=== PATIENT | male | born 1955 | race Caucasian/White ===

== ENCOUNTER 2021-01-30 07:13 | Outpatient (CLI) | payer MEDICARE, SELFPAY ==
--- NOTE | 2021-01-30 07:15 | USCV_ITS ---
Jair Ovalle Age: 65 Gender: M : 1955 Exam Date: 01/30/2021 07:38 Ordering Phys: Anthony Belcher MD Technologist: Exam Location: [facility] [place] Indication: RT LEG EDEMA PROCEDURES: Venous duplex imaging was performed in only the right lower extremity. The following venous structures were evaluated: common femoral vein, profunda vein, proximal portion of the greater saphenous vein, superficial femoral vein, and the popliteal vein. In addition, the posterior tibial and peroneal trunk were evaluated. FINDINGS: Normal 2-D Doppler and augmentation and compressibility throughout the lower extremity venous structures. Additional imaging through the proximal calf veins also reveals no thrombus. Limited evaluation of the greater saphenous vein is patent with no thrombus. CONCLUSIONS No DVT right lower extremity. Dr. Gauri Patricia DO (Electronically Signed) Final Date: 30 January 2021 08:41 S
== END 2021-01-30 07:14 | disposition home or self-care (01) ==
PROVIDERS: PCP Family Medicine; Visit Provider Family Medicine
DX: M25.471 Effusion, right ankle (principal); R60.0 Localized edema
CPT/HCPCS: 93971

== ENCOUNTER → 2021-02-01 09:03 | Outpatient (BNVA) | payer MEDICARE, SELFPAY | PROVIDERS: PCP Family Medicine; Visit Provider Nurse Practitioner Family | DX: M25.471 Effusion, right ankle (principal); Z79.899 Other long term (current) drug therapy; E55.9 Vitamin D deficiency, unspecified; Z13.6 Encounter for screening for cardiovascular disorders | CPT/HCPCS: 80053; 80061; 81003; 82306; 83036; 84439; 84443; 84550; 85025; 85651; 86140 ==

== ENCOUNTER → 2021-02-02 15:49 | Outpatient (BNVA) | payer MEDICARE, SELFPAY | PROVIDERS: PCP Family Medicine; Visit Provider Nurse Practitioner Family | DX: E53.8 Deficiency of other specified B group vitamins (principal) | CPT/HCPCS: 82607 ==

== ENCOUNTER → 2021-02-07 11:14 | Outpatient (BNVA) | payer MEDICARE, SELFPAY | PROVIDERS: PCP Family Medicine; Visit Provider Podiatrist Foot & Ankle Surgery | DX: S99.911A Unspecified injury of right ankle, initial encounter (principal); X58.XXXA Exposure to other specified factors, initial encounter | CPT/HCPCS: 73610 ==

== ENCOUNTER 2021-02-14 15:03 | Outpatient (CLI) | payer MEDICARE, SELFPAY ==
--- NOTE | 2021-02-14 15:30 | CT_ITS ---
WS: [id number] NONCONTRAST CT RIGHT ANKLE TECHNIQUE: Noncontrast CT right ankle with coronal and sagittal reformatted images. CLINICAL INFORMATION: ankle pain COMPARISON: Radiograph February 07, 2021 DLP: 568.[address] scans at [facility] use at least one of these dose optimization techniques: automated e xposure control; mA and/or kV adjustment per patient size (includes targeted exams where dose is matc hed to clinical indication); or iterative reconstruction. FINDINGS: Mild spontaneous soft tissue edema involving the lower leg and ankle. This extends into the hindfoot. Normal ankle mortise. Normal medial and lateral malleolus. No acute avulsion fractures. Subchondral sclerosis involving the talar dome with slight fragmentation and depression along the pos terior lateral talar dome. Subchondral lesion measures 1.5 x 1.3 CM. Findings compatible with avascul ar necrosis in this location. Small amount of subchondral sclerosis involving the mid talar dome and anterior medial talar dome also suspicious for avascular necrosis without collapse. Normal distal tibial plafond. Normal calcaneus. Normal talocalcaneal articulation. Normal cuboid. Nor mal navicular and talonavicular articulation. CT/CT ankle RT wo con* [id number] IMPRESSION: 1. 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 Area of avascul ar necrosis measures 1.6 x 1.3 cm. 2. Additional sclerosis extending across the mid talar down to the anterior me dial talar dome suspicious for avascular necrosis without fragmentation or ricardo apse. 3. Normal medial and lateral malleolus. No acute fractures. 4. Soft tissue edema lower leg and hindfoot. 5. No other acute findings.
== END 2021-02-14 15:04 | disposition home or self-care (01) ==
LOC: RADWPI 15:11
PROVIDERS: PCP Family Medicine; Visit Provider Podiatrist Foot & Ankle Surgery
DX: M25.571 Pain in right ankle and joints of right foot (principal); R60.0 Localized edema
CPT/HCPCS: 73700